=== PATIENT | female | born 1960 | race Native Hawaiian/Other Pacific Islander ===

== ENCOUNTER 2017-10-30 20:23 | Emergency (ER) | payer BC ==
[~2017-10-30] VITALS: Ht 157.5 cm; Wt 77.4 kg
[2017-10-30 21:03] VITALS: TEMP 98.8
[2017-10-30 23:00] LABS: PLATELET COUNT 145 K/uL (152-353)
[2017-10-30 23:09] LABS: POTASSIUM 4.1 mmol/L (3.6-5.2)
[2017-10-31 01:50] VITALS: BP 113/71
== END 2017-10-31 01:56 | disposition home or self-care (01) ==
LOC: ED 20:23
PROVIDERS: Specialist
DX: K57.10 Diverticulosis of small intestine without perforation or abscess without bleeding (principal)
CPT/HCPCS: 80053; 81000; 82150; 83690; 85027; 96372; 99283; J1885; Q9963

== ENCOUNTER 2018-02-15 07:44 | Day surgery (SDC) | payer BC ==
[2018-02-15 08:32] LABS: PLATELET COUNT 170 K/uL (152-353)
[2018-02-15 08:44] LABS: POTASSIUM 4.8 mmol/L (3.6-5.2)
== END 2018-02-15 11:50 | disposition home or self-care (01) ==
LOC: OR 07:44
PROVIDERS: Student in an Organized Health Care Education/Training Program
PROC: 0DJD8ZZ Inspection of Lower Intestinal Tract, Via Natural or Artificial Opening Endoscopic (ICD-10-PCS; principal; 2018-02-15)
DX: K57.30 Diverticulosis of large intestine without perforation or abscess without bleeding (principal); K64.8 Other hemorrhoids; Z12.11 Encounter for screening for malignant neoplasm of colon
CPT/HCPCS: 80053; 85027; J2001; J2250; J2405; J2704

== ENCOUNTER 2018-02-17 15:39 | Outpatient (CLI) | payer BC | END 2018-02-17 22:16 | disposition home or self-care (01) | LOC: MAMMO 15:39 | DX: Z12.31 Encounter for screening mammogram for malignant neoplasm of breast (principal) ==

== ENCOUNTER 2019-02-04 14:22 | Outpatient (CLI) | payer OTHER | END 2019-02-04 23:46 | disposition home or self-care (01) | LOC: RAD 14:22 | DX: M79.89 Other specified soft tissue disorders (principal); M79.672 Pain in left foot ==

== ENCOUNTER 2019-04-08 12:57 | Outpatient (CLI) | payer OTHER | END 2019-04-08 19:22 | disposition home or self-care (01) | LOC: MAMMO 12:57 | DX: N64.4 Mastodynia (principal); L53.9 Erythematous condition, unspecified; N63.10 Unspecified lump in the right breast, unspecified quadrant | CPT/HCPCS: G0279 ==

== ENCOUNTER 2019-05-01 10:21 | Outpatient (CLI) | payer OTHER | END 2019-05-01 10:30 | disposition short-term general hospital (02) | LOC: AMB 10:21 | DX: M79.605 Pain in left leg (principal); M79.604 Pain in right leg; R20.2 Paresthesia of skin; V49.40XA Driver injured in collision with unspecified motor vehicles in traffic accident, initial encounter; Y92.413 State road as the place of occurrence of the external cause | CPT/HCPCS: A0425; A0429 ==

== ENCOUNTER 2019-05-01 10:37 | Emergency (ER) | payer OTHER ==
[~2019-05-01] VITALS: Ht 157.5 cm; Wt 75.3 kg
[2019-05-01 10:38] VITALS: TEMP 98.1
[2019-05-01 12:27] LABS: PLATELET COUNT 108 K/uL (152-353)
[2019-05-01 12:31] LABS: POTASSIUM 3.8 mmol/L (3.6-5.2)
[2019-05-01 12:59] LABS: PARTIAL THROMBOPLASTIN TIME 26.3 SECONDS (24.5-33.6)
[2019-05-01 13:14] VITALS: BP 156/93
== END 2019-05-01 13:25 | disposition short-term general hospital (02) ==
LOC: ED 10:37
PROVIDERS: Hospitalist
DX: S06.5X0A Traumatic subdural hemorrhage without loss of consciousness, initial encounter (principal); M79.661 Pain in right lower leg; R00.1 Bradycardia, unspecified; V49.40XA Driver injured in collision with unspecified motor vehicles in traffic accident, initial encounter
CPT/HCPCS: 80053; 80320; 85027; 85610; 85730; 93005; 96360; 96375; 99285; J1885; J2270; J2405; J2765

== ENCOUNTER 2019-08-12 12:36 | Outpatient (CLI) | payer OTHER | END 2019-08-12 19:47 | disposition home or self-care (01) | LOC: LABW 12:36 | DX: I62.03 Nontraumatic chronic subdural hemorrhage (principal) | CPT/HCPCS: 36415; 82565; 84520 ==

== ENCOUNTER 2020-04-25 08:41 | Outpatient (CLI) | payer OTHER | END 2020-04-25 22:46 | disposition home or self-care (01) | LOC: MAMMO 08:41 | DX: Z12.31 Encounter for screening mammogram for malignant neoplasm of breast (principal) ==